=== PATIENT | male | born 1930 | race Caucasian/White ===

== ENCOUNTER 2017-01-12 11:03 | Emergency (ER) | payer OTHER ==
--- NOTE | 2017-01-12 12:34 | DIAGNOSTIC IMAGING REPORT ---
PROCEDURE: XR KNEE 4 VIEWS - LEFT INDICATION: TRAUMA/INJURY TECHNIQUE: Three views. COMPARISON: None. FINDINGS: Mild tricompartment spur formation. Mild narrowing of the medial compartment. Osteopenia. No fracture. No effusion. Extensive calcific atherosclerosis. IMPRESSION: 1. Mild atherosclerosis with mild narrowing medially 2. Osteopenia 3. Calcific atherosclerosis
--- NOTE | 2017-01-12 12:37 | DIAGNOSTIC IMAGING REPORT ---
PROCEDURE: XR HIP 2VW W W/O AP PELVIS-LT INDICATION: TRAUMA/INJURY TECHNIQUE: AP view of the pelvis and hips with lateral view of the left hip. COMPARISON: Left hip x-ray 01/02/2008. FINDINGS: LEFT HIP: Stable total left hip arthroplasty without loosening or fracture. PELVIS: Total right hip arthroplasty is also unchanged. No suspicious osseous lesion. Severe degenerative changes of the distal lumbar spine. Pelvic surgical clips. IMPRESSION: 1. Normal bilateral hip arthroplasties
--- NOTE | 2017-01-12 12:45 | ED ORDER SUMMARY ---
..... Patient: LEONOR CASTILLO OrderSheet [facility] VisitID: [id number] [place] [address] 86y, M Registration Date/Time: 01/12/2017 ORDER SHEET Weight: 55.7 kg (stated) Allergies: B-12, Vailum GENERAL ORDERS: Hip 2V Left w AP Pelvis Urgent (11:01/12/2017 PHutchinson DO) (11:28 LWhalen R.N.) Knee 4V Right Urgent (11:01/12/2017 PHutchinson DO) (Cancelled: Other11:25 PHutchinson DO) Knee 4V Left Urgent (01/12/2017 PHutchinson DO) (11:28 LWhalen R.N.) UA-Culture if indicated Urgent (11:01/12/2017 PHflchinson DO) (11:53 LWhalen R.N.) Cardiac Panel Stat (11:01/12/2017 PHflchinson DO) (11:53 LWhalen R.N.) BNP Urgent (11:01/12/2017 PHutchinson DO) (11:53 LWhalen R.N.) Amylase Urgent (11:01/12/2017 PHflchinson DO) (11:53 LWhalen R.N.) Vitals (11:01/12/2017 PHflchinson DO) (11:39 JBest R.N.) MEDICATION ORDERS: Acetaminophen PO 1,000 mg (NOW) (11:01/12/2017 PHflchinson DO) (Ack 12:06 LWhalen R.N.) (12:10 JBest R.N.) IV FLUIDS: IV NS : initial bolus 500 mL (1000 mL/hr), then 250 mL/hr for X2 (NOW) (11:01/12/2017 PHflchinson DO) (Ack 12:06 LWhalen R.N.) (12:09 JBest R.N.) ORDER SHEET NOTES: [Electronically signed by Neel Calles DO (16:25 01/12/2017)] [Electronically signed by Simi Maurice R.N. (01/12/2017)] [Electronically locked/signed by Simi Maurice R.N. (01/12/2017)]
--- NOTE | 2017-01-12 12:45 | ED ORDER SUMMARY ---
..... Patient: LEONOR CASTILLO OrderSheet [facility] VisitID: [id number] [place] [address] 86y, M Registration Date/Time: 01/12/2017 ORDER SHEET Weight: 55.7 kg (stated) Allergies: B-12, Vailum GENERAL ORDERS: Hip 2V Left w AP Pelvis Urgent (11:01/12/2017 PHutchinson DO) (11:28 LWhalen R.N.) Knee 4V Right Urgent (11:01/12/2017 PHutchinson DO) (Cancelled: Other11:25 PHutchinson DO) Knee 4V Left Urgent (01/12/2017 PHutchinson DO) (11:28 LWhalen R.N.) UA-Culture if indicated Urgent (11:01/12/2017 PHdechinson DO) (11:53 LWhalen R.N.) Cardiac Panel Stat (11:01/12/2017 PHdechinson DO) (11:53 LWhalen R.N.) BNP Urgent (11:01/12/2017 PHutchinson DO) (11:53 LWhalen R.N.) Amylase Urgent (11:01/12/2017 PHdechinson DO) (11:53 LWhalen R.N.) Vitals (11:01/12/2017 PHdechinson DO) (11:39 JBest R.N.) MEDICATION ORDERS: Acetaminophen PO 1,000 mg (NOW) (11:01/12/2017 PHdechinson DO) (Ack 12:06 LWhalen R.N.) (12:10 JBest R.N.) IV FLUIDS: IV NS : initial bolus 500 mL (1000 mL/hr), then 250 mL/hr for X2 (NOW) (11:01/12/2017 PHdechinson DO) (Ack 12:06 LWhalen R.N.) (12:09 JBest R.N.) ORDER SHEET NOTES: [Electronically signed by Neel Calles DO (16:25 01/12/2017)] [Electronically signed by Simi Maurice R.N. (01/12/2017)] [Electronically locked/signed by Simi Maurice R.N. (01/12/2017)]
--- NOTE | 2017-01-12 12:45 | ED CLINICAL REPORT ---
Clinical Report - Physicians/Mid Levels [facility] [address] [place] [address] 01/12/2017 11:05 Patient: LEONOR CASTILLO Time Seen: 11:20. Arrived- By ambulance. Historian- patient and EMS personnel. HISTORY OF PRESENT ILLNESS Chief Complaint: Injury to left hip. The injury happened about 9 days ago. Fell while standing and landed on the ground. Occurred at home. ( Left hip pain following a fall approx 9 days ago. Went to [place] and received a "pain shot" and had xrays done). Patient is experiencing moderate pain. Patient denies injury to the head or neck. No other injury. REVIEW OF SYSTEMS The patient complains of pain on weight bearing. No swelling, tingling, weakness, numbness or suspected foreign body. No skin laceration. All systems otherwise negative, except as recorded above. PAST HISTORY ( PROBLEMS: Urinary Retention. Hematuria. Fractured Metacarpal. Fall. Pleurisy. Pneumonia. PTSD. Asthma. Lumbar Strain. Chronic Back Pain. Peripheral Vascular Disease. Benign Prostatic Hypertrophy. Gastroesophageal Reflux. Depression. Environmental Allergies. Arthritis. Anemia SURGERIES: Appendectomy. Hip Surgery - right and left total hips. Intestines. Ulcer). SOCIAL HISTORY Smoker- current status unknown. Occasional alcohol use. Is a local resident. ADDITIONAL NOTES The nursing notes have been reviewed. PHYSICAL EXAM Vital Signs: 01/12/2017 11:09 BP: 133/81. HR: 86. RR: 16. O2 saturation: 100%. Temp: 98.6 F. Pain level now: 09/14. Appearance: Alert. Oriented X3. Patient in mild distress. Head: Head atraumatic. Eyes: Eyes normal inspection. No scleral icterus or pale conjunctivae. ENT: Pharynx normal. No pharyngeal erythema or tonsillar exudate. The mucous membranes are not dry. Neck: Neck supple. C-spine non-tender. CVS: Normal heart rate and rhythm. Pulses normal. Respiratory: No respiratory distress. Breath sounds normal. Chest nontender. Abdomen: No visible injury. Soft and nontender. Back: No tenderness. No vertebral point tenderness or soft tissue tenderness. Skin: Skin warm and dry. Normal skin color. Normal skin turgor. Extremities: No signs of infection involving the lower extremities. Left hip: mild tenderness located in the anterior, posterior, medial and lateral aspect of the hip. Neurovascular intact distally. (old surgical scar present). No erythema, swelling, laceration, abrasion or ecchymosis. No puncture wound, foreign body or deformity. No limitation in ROM. The left leg is not shortened, externally rotated, internally rotated, flexed or adducted. The left leg is not abducted. Left thigh: moderate tenderness located in the lateral aspect of upper thigh. No erythema, swelling, laceration, abrasion or ecchymosis. No puncture wound, foreign body or deformity. Ankle stable. Extremities otherwise negative. Gait: Limping gait. Neuro, Vascular and Tendons: No pulse deficit present. Capillary refill not prolonged. Motor intact. No functional tendon deficit or tendon injury seen. No sensory deficit or weakness. Neuro: Oriented X 3. No motor deficit. No sensory deficit. LABS, X-RAYS, AND EKG Lt Hip X-ray: No fracture. Normal alignment. (ASCVD; prosthesis in place). Views: AP and true lateral. Technique: good. The X-rays were interpreted contemporaneously by me. Lt Knee X-ray: (ASCVD). Views: AP, lateral and oblique. Technique: good. The X-rays were interpreted contemporaneously by me. Laboratory Tests: UA-Culture if indicated: (SIMBA: 01/12/2017 12:10) ( MsgRcvd 01/12/2017 12:36) Final results Test Result Flag Units (Reference) URINE COLOR YELLOW URINE APPEARANCE CLEAR URINE GLUCOSE NEGATIVE (NEGATIVE) URINE BILIRUBIN NEGATIVE (NEGATIVE) URINE KETONE NEGATIVE (NEGATIVE) URINE SPECIFIC GRAVITY 1.015 (1.010-1.030) URINE PH 5.5 (5.0-8.0) URINE PROTEIN NEGATIVE (NEGATIVE) URINE UROBILINOGEN 0.2 EU/dL (0.2-1.0) URINE NITRITE NEGATIVE (NEGATIVE) URINE BLOOD NEGATIVE (NEGATIVE) URINE LEUK ESTERASE NEGATIVE (NEGATIVE) URINE RBC NONE SEEN rbc/hpf (0-1) URINE WBC RARE wbc/hpf (0-1) URINE EPITHELIAL CELLS RARE EPI/hpf (0-5) URINE BACTERIA FEW (1+) (NONE SEEN) URINE COMMENT CULT NOT INDICATED 1-3 GRANULAR CASTS. 1+ AMORPHOUS URATES.URINE CULTURES ARE SET-UP BASED ON THE FOLLOWING CRITERIA:POSITIVE NITRITEPOSITIVE LEUKOCYTE ESTERASEGREATER THAN 10 WHITE BLOOD CELLSMODERATE (2+) OR GREATER BACTERIA CBC w Diff: (SIMBA: 01/12/2017 12:00) ( [facility] 01/12/2017 12:19) Final results Test Result Flag Units (Reference) WHITE BLOOD COUNT 6.2 K/uL (4.5-11.5) RED BLOOD COUNT 3.36 L M/uL (4.50-5.90) HEMOGLOBIN 11.0 L gm/dL (13.5-17.5) HEMATOCRIT 32.2 L % (41.0-53.0) MEAN CELL VOLUME 96 fL (80-100) MEAN CORPUSCULAR HGB 33 pg (26-34) MEAN CORPUSCULAR HGB CONC 34 g/dL (31-37) RED CELL DISTRIBUTION WIDTH 13.5 % (11.6-14.8) PLATELET COUNT 219 K/uL (150-400) NEUTROPHIL % 78.7 H % (50-75) LYMPH % 12.5 L % (25-40) MONO % 6.5 % (3-14) EOSINOPHIL % 2.0 % (0-4) BASOPHIL % 0.3 % (0-2) BNP: (SIMBA: 01/12/2017 12:00) ( [facility] 01/12/2017 12:36) Final results Test Result Flag Units (Reference) B-TYPE NATRIURETIC PEPTIDE 306 H pg/ml (5-100) CHEM 13 PANEL: (SIMBA: 01/12/2017 12:00) ( [facility] 01/12/2017 12:40) Final results Test Result Flag Units (Reference) GLUCOSE 102 mg/dL (70-110) BUN 16 mg/dL (7-18) CREATININE 0.8 mg/dL (0.6-1.3) Estimated GFR >60 mL/min Estimated GFR- >60 mL/min Note: Persistent reduction over 3 months in eGFR<60 mL/min/1.73 m2 defines CKD. Patients with eGFR values>=60 mL/min/1.73 m2 may also have CKD if evidence ofpersistent proteinuria. Additional information may be foundat www.kidney.org. SODIUM 136 mmol/L (136-145) POTASSIUM 4.3 mmol/L (3.5-5.1) CHLORIDE 103 mmol/L (98-107) CARBON DIOXIDE 24 mmol/L (21-32) CALCIUM 8.3 L mg/dL (8.5-10.1) TOTAL PROTEIN 6.6 g/dL (6.4-8.2) ALBUMIN 3.2 L g/dL (3.3-5.0) BILIRUBIN, TOTAL 0.4 mg/dL (0.0-1.0) ALKALINE PHOSPHATASE 91 U/L (46-116) AST (SGOT) 20 U/L (15-37) ALT (SGPT) 16 U/L (12-78) MAGNESIUM 2.1 mg/dL (1.8-2.4) AMYLASE 61 U/L (25-115) CPK 91 U/L (24-260) TROPONIN I <0.05 ng/mL (0.00-1.5) TROPONIN REFERENCE RANGE:<0.1 NEGATIVE0.1-1.5 INDETERMINANT>1.5 POSITIVE . Pulse Oximetry: 01/12/2017 11:09 O2 saturation: 100%. (FIO2 - room air). Interpretation: normal. PROGRESS AND PROCEDURES Course of Care: Acetaminophen 1000 mg PO given. Normal Saline 500 mL IVPB given. 14:51 01/12/17. Seen by d/c samantha- may have 2 hours in the am and 2 hours in the pm of home health. [facility] Pt is ambulatory in the ED and A+O x 4. No clear admission criteria now. Patient/family counseled. Old ED records reviewed. Disposition: Discharged. Condition: stable and improved. CLINICAL IMPRESSION Acute traumatic pain in the left lower extremity (hip and thigh). Chronic difficulty walking with falling episodes. 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 Fall on same level by slipping. INSTRUCTIONS Elevate affected areas above chest level. Warnings: GENERAL WARNINGS: Return or contact your physician immediately if your condition worsens or changes unexpectedly, if not improving as expected, or if other problems arise. Your Current Medications: CONTINUE TAKING THE FOLLOWING MEDICATIONS: Acetaminophen Oral. Arthritis acet* : 1/650 mg daily. Calc,mag,zinc* : 1-3 per day. Calcium* : 2x a day. Cholecalciferol Oral : Tablet 1000 unit, daily. Cyanobalmic* : 1000 mg daily. Easy c* : daily. Finasteride Oral : 5 mg daily. Flex-a-min Joint Flex Oral : daily. Flunisolide Nasal. Ginkgo Biloba Oral : 120 mg daily. Glucosamine Oral : 1500 mg daily. LiquiTears Ophthalmic : prn. Loratadine Oral : 10 mg daily. Mirtazapine Oral : Tablet 7.5 mg, daily. [place] 3 Oral : bid. Omeprazole Oral : 10 mg daily. Oxycodone-Acetaminophen Oral : 5/325 mg 2x a day. PARoxetine HCl Oral : Tablet 10 mg, daily. Pentoxifylline ER Oral : 400 mg daily. Puridoxine* : 50 mg daily. Tamsulosin HCl Oral : 0.4 mg 2x a day. Vit C* : daily. Vit E* : daily. Vitamins/Minerals Oral : 2x a day. Follow-up: [facility] Follow-up with: Dusty Rojas MD, [facility], , [facility], [address] [place] [address] Follow up in about two days. (Electronically signed by Neel Calles DO 01/12/2017 16:25)
--- NOTE | 2017-01-12 12:45 | ED NURSING NOTES ---
Clinical Report - Nurses [facility] [address] [place] [address] 01/12/2017 11:05 Patient: LEONOR CASTILLO TRIAGE Triage time 11:11. Acuity: LEVEL 3. Chief Complaint: LEFT LOWER EXTREMITY PAIN. Alert. SEPSIS SCREEN: Sepsis Screen. Negative (no infection suspected/documented). --11:24 Simi Maurice R.N. 11:09 01/12/17. BP: 133/81. HR: 86. RR: 16. O2 saturation: 100%. Temp: 98.6 F. Pain level now: 09/14. --11:24 Simi Maurice R.N. Weight: 55.7 kg stated. Height/Length: 63 inches Per Patient. BMI: 21.8. --11:10 Simi Maurice R.N. Medications Acetaminophen Oral. Arthritis acet 1/650 mg, daily. Calc,mag,zinc (1-3 per day). Calcium, 2x a day. Cholecalciferol Oral (Tablet 1000 unit), daily. Cyanobalmic 1000 mg, daily. Easy c, daily. Finasteride Oral 5 mg, daily. Flex-a-min Joint Flex Oral, daily. Flunisolide Nasal. Ginkgo Biloba Oral 120 mg, daily. Glucosamine Oral 1500 mg, daily. LiquiTears Ophthalmic, as needed. Loratadine Oral 10 mg, daily. Mirtazapine Oral (Tablet 7.5 mg), daily. [place] 3 Oral, bid. Omeprazole Oral 10 mg, daily. Oxycodone-Acetaminophen Oral 5/325 mg, 2x a day. PARoxetine HCl Oral (Tablet 10 mg), daily. Pentoxifylline ER Oral 400 mg, daily. Puridoxine 50 mg, daily. Tamsulosin HCl Oral 0.4 mg, 2x a day. Vit C, daily. Vit E, daily. Vitamins/Minerals Oral, 2x a day. --11:17 Simi Maurice R.N. Allergies B-12. Vailum. --11:17 Simi Maurice R.N. History Arrived by EMS. Historian: patient. Primary physician (Mary ([facility])). No injury occurred. This occurred (about 9 days ago). ( Left hip pain following a fall approx 9 days ago. Went to [place] and received a "pain shot" and had xrays done.). Treatment RADIOLOGIST CHIEF OF BREAST IMAGING: Seen within the last 30 days at another facility; seen for similar symptoms; xrays done; treatment- pain medication. See EMS report. SURGERY HX: Right and left hip surgery (Total Hip Replacement). SOCIAL HX: Former smoker, end date 1975. Occasional alcohol use. No drug use. No infectious disease exposure. SELF HARM ASSESSMENT: A self harm assessment was performed. The patient answered "no" to the question "Do you have thoughts of harming or killing yourself?". ABUSE ASSESSMENT: Abuse assessment: ("yes") The patient was asked "Do you feel safe in your home?". FALL RISK ASSESSMENT: Fall risk assessment completed. Risk factors identified include patient age greater than 65 years and history of fall. Fall interventions initiated. Side rails up. Brakes on Bed in low position. Patient visible from nurses' station. Call light in reach of patient. Instructed not to get up without assistance. --11:24 Simi Maurice R.N. PROBLEMS: Urinary Retention. Hematuria. Fractured Metacarpal. Fall. Pleurisy. Pneumonia. PTSD. Asthma. Lumbar Strain. Chronic Back Pain. Peripheral Vascular Disease. Benign Prostatic Hypertrophy. Gastroesophageal Reflux. Depression. Environmental Allergies. Arthritis. --11:17 Simi Maurice R.N. ADDITIONAL SURGERIES: Appendectomy. Hip Surgery. Intestines. Ulcer. --11:17 Simi Maurice R.N. Interventions ID band on patient. To room. --11:24 Simi Maurice R.N. PHYSICAL ASSESSMENT EXTREMITIES: Limited ROM present in the left hip. Extremity pulses are within normal limits. No lower extremity edema. Left hip: tenderness. SKIN: Skin intact. Skin is warm and dry. --11:31 Simi Maurice R.N. NURSING PROGRESS NOTES Patient gowned. Reassurance given. Patient identifiers checked. Call light placed in reach. Side rails up. Bed placed in lowest position. Brakes of bed on. Patient ready for evaluation- ED physician notified. --11:31 Simi Maurice R.N. Patient transported to radiology by stretcher with tech. --11:36 Simi Maurice R.N. Patient returned from radiology by stretcher with tech. --11:52 Simi Maurice R.N. 11:58 01/12/2017 Site #1 started via IV in the left forearm with an 20g angiocath, with aseptic technique and good blood return; one attempt. Blood drawn: rainbow set. Labeled in the presence of the patient and sent to the lab. Saline lock flushed with 10 mL saline. --12:08 Simi Maurice R.N. 12:04 01/12/2017 Started bag #1 1000 mL IV Fluids IV NS (Saline); bolus of 500 mL over 30 minute(s) then at 250 mL/hr over 2 hour(s) via site #1 via IV pump. Allergies verified and confirmed 5 rights. IV patency established. IV site checked: no pain, redness, or swelling. IV flushed thoroughly pre- and post-medication administration. --12:09 Simi Maurice R.N. 12:05 01/12/2017 Acetaminophen (APAP) PO Tablets 1000 mg given. Allergies verified and confirmed 5 rights. --12:10 Simi Maurice R.N. late entry - 13:45. ( Pts granddaughter in the room and would like to speak with someone regarding placement options. naval surface fire support planner will come to the ED to talk with her.). --16:11 Simi Maurice R.N. late entry - 14:45. ( Jacobo (Discharge Planning) in to talk to the granddaughter about options for the pt for assistance at home.). --16:12 Simi Maurice R.N. 15:30 late entry -. ( [facility] until she is able to get him into [facility] in a few weeks.). --16:13 Simi Maurice R.N. 16:10 01/12/17. BP: 128/76. HR: 84. RR: 16. O2 saturation: 98%. Temp: 98.6 F. Pain level now: 08/17. --16:15 Simi Maurice R.N. DISPOSITION / DISCHARGE Departure time: 1610. Discharge instructions provided and reviewed with the patient and family. Patient and family verbalized understanding. Written instructions provided in Japanese. The patient was discharged by the physician. He was discharged home and accompanied by family. He left the Emergency Department in a wheelchair and via private vehicle. Family member driving. --16:15 Simi Maurice R.N. Condition at departure: improved. --16:15 Simi Maurice R.N. 15:00 01/12/2017 IV Fluids IV NS Discontinued: bag #1 infused. Total amount infused: 1000 mL. --16:17 Simi Maurice R.N. 15:52 01/12/2017 Site #1 removed upon discharge. Catheter intact. Bandaid applied. --16:17 Simi Maurice R.N. 16:10 01/12/17. BP: 128/76. HR: 84. RR: 16. O2 saturation: 98%. Temp: 98.6 F. Pain level now: 08/17. --16:18 Simi Maurice R.N. Locked/Released at 01/12/2017 19:07 by Simi Maurice R.N.
--- NOTE | 2017-01-12 12:45 | ED CLINICAL REPORT ---
Clinical Report - Physicians/Mid Levels [facility] [address] [place] [address] 01/12/2017 11:05 Patient: LEONOR CASTILLO Time Seen: 11:20. Arrived- By ambulance. Historian- patient and EMS personnel. HISTORY OF PRESENT ILLNESS Chief Complaint: Injury to left hip. The injury happened about 9 days ago. Fell while standing and landed on the ground. Occurred at home. ( Left hip pain following a fall approx 9 days ago. Went to [place] and received a "pain shot" and had xrays done). Patient is experiencing moderate pain. Patient denies injury to the head or neck. No other injury. REVIEW OF SYSTEMS The patient complains of pain on weight bearing. No swelling, tingling, weakness, numbness or suspected foreign body. No skin laceration. All systems otherwise negative, except as recorded above. PAST HISTORY ( PROBLEMS: Urinary Retention. Hematuria. Fractured Metacarpal. Fall. Pleurisy. Pneumonia. PTSD. Asthma. Lumbar Strain. Chronic Back Pain. Peripheral Vascular Disease. Benign Prostatic Hypertrophy. Gastroesophageal Reflux. Depression. Environmental Allergies. Arthritis. Anemia SURGERIES: Appendectomy. Hip Surgery - right and left total hips. Intestines. Ulcer). SOCIAL HISTORY Smoker- current status unknown. Occasional alcohol use. Is a local resident. ADDITIONAL NOTES The nursing notes have been reviewed. PHYSICAL EXAM Vital Signs: 01/12/2017 11:09 BP: 133/81. HR: 86. RR: 16. O2 saturation: 100%. Temp: 98.6 F. Pain level now: 09/14. Appearance: Alert. Oriented X3. Patient in mild distress. Head: Head atraumatic. Eyes: Eyes normal inspection. No scleral icterus or pale conjunctivae. ENT: Pharynx normal. No pharyngeal erythema or tonsillar exudate. The mucous membranes are not dry. Neck: Neck supple. C-spine non-tender. CVS: Normal heart rate and rhythm. Pulses normal. Respiratory: No respiratory distress. Breath sounds normal. Chest nontender. Abdomen: No visible injury. Soft and nontender. Back: No tenderness. No vertebral point tenderness or soft tissue tenderness. Skin: Skin warm and dry. Normal skin color. Normal skin turgor. Extremities: No signs of infection involving the lower extremities. Left hip: mild tenderness located in the anterior, posterior, medial and lateral aspect of the hip. Neurovascular intact distally. (old surgical scar present). No erythema, swelling, laceration, abrasion or ecchymosis. No puncture wound, foreign body or deformity. No limitation in ROM. The left leg is not shortened, externally rotated, internally rotated, flexed or adducted. The left leg is not abducted. Left thigh: moderate tenderness located in the lateral aspect of upper thigh. No erythema, swelling, laceration, abrasion or ecchymosis. No puncture wound, foreign body or deformity. Ankle stable. Extremities otherwise negative. Gait: Limping gait. Neuro, Vascular and Tendons: No pulse deficit present. Capillary refill not prolonged. Motor intact. No functional tendon deficit or tendon injury seen. No sensory deficit or weakness. Neuro: Oriented X 3. No motor deficit. No sensory deficit. LABS, X-RAYS, AND EKG Lt Hip X-ray: No fracture. Normal alignment. (ASCVD; prosthesis in place). Views: AP and true lateral. Technique: good. The X-rays were interpreted contemporaneously by me. Lt Knee X-ray: (ASCVD). Views: AP, lateral and oblique. Technique: good. The X-rays were interpreted contemporaneously by me. Laboratory Tests: UA-Culture if indicated: (SIMBA: 01/12/2017 12:10) ( MsgRcvd 01/12/2017 12:36) Final results Test Result Flag Units (Reference) URINE COLOR YELLOW URINE APPEARANCE CLEAR URINE GLUCOSE NEGATIVE (NEGATIVE) URINE BILIRUBIN NEGATIVE (NEGATIVE) URINE KETONE NEGATIVE (NEGATIVE) URINE SPECIFIC GRAVITY 1.015 (1.010-1.030) URINE PH 5.5 (5.0-8.0) URINE PROTEIN NEGATIVE (NEGATIVE) URINE UROBILINOGEN 0.2 EU/dL (0.2-1.0) URINE NITRITE NEGATIVE (NEGATIVE) URINE BLOOD NEGATIVE (NEGATIVE) URINE LEUK ESTERASE NEGATIVE (NEGATIVE) URINE RBC NONE SEEN rbc/hpf (0-1) URINE WBC RARE wbc/hpf (0-1) URINE EPITHELIAL CELLS RARE EPI/hpf (0-5) URINE BACTERIA FEW (1+) (NONE SEEN) URINE COMMENT CULT NOT INDICATED 1-3 GRANULAR CASTS. 1+ AMORPHOUS URATES.URINE CULTURES ARE SET-UP BASED ON THE FOLLOWING CRITERIA:POSITIVE NITRITEPOSITIVE LEUKOCYTE ESTERASEGREATER THAN 10 WHITE BLOOD CELLSMODERATE (2+) OR GREATER BACTERIA CBC w Diff: (SIMBA: 01/12/2017 12:00) ( [facility] 01/12/2017 12:19) Final results Test Result Flag Units (Reference) WHITE BLOOD COUNT 6.2 K/uL (4.5-11.5) RED BLOOD COUNT 3.36 L M/uL (4.50-5.90) HEMOGLOBIN 11.0 L gm/dL (13.5-17.5) HEMATOCRIT 32.2 L % (41.0-53.0) MEAN CELL VOLUME 96 fL (80-100) MEAN CORPUSCULAR HGB 33 pg (26-34) MEAN CORPUSCULAR HGB CONC 34 g/dL (31-37) RED CELL DISTRIBUTION WIDTH 13.5 % (11.6-14.8) PLATELET COUNT 219 K/uL (150-400) NEUTROPHIL % 78.7 H % (50-75) LYMPH % 12.5 L % (25-40) MONO % 6.5 % (3-14) EOSINOPHIL % 2.0 % (0-4) BASOPHIL % 0.3 % (0-2) BNP: (SIMBA: 01/12/2017 12:00) ( [facility] 01/12/2017 12:36) Final results Test Result Flag Units (Reference) B-TYPE NATRIURETIC PEPTIDE 306 H pg/ml (5-100) CHEM 13 PANEL: (SIMBA: 01/12/2017 12:00) ( [facility] 01/12/2017 12:40) Final results Test Result Flag Units (Reference) GLUCOSE 102 mg/dL (70-110) BUN 16 mg/dL (7-18) CREATININE 0.8 mg/dL (0.6-1.3) Estimated GFR >60 mL/min Estimated GFR- >60 mL/min Note: Persistent reduction over 3 months in eGFR<60 mL/min/1.73 m2 defines CKD. Patients with eGFR values>=60 mL/min/1.73 m2 may also have CKD if evidence ofpersistent proteinuria. Additional information may be foundat www.[email or web address].org. SODIUM 136 mmol/L (136-145) POTASSIUM 4.3 mmol/L (3.5-5.1) CHLORIDE 103 mmol/L (98-107) CARBON DIOXIDE 24 mmol/L (21-32) CALCIUM 8.3 L mg/dL (8.5-10.1) TOTAL PROTEIN 6.6 g/dL (6.4-8.2) ALBUMIN 3.2 L g/dL (3.3-5.0) BILIRUBIN, TOTAL 0.4 mg/dL (0.0-1.0) ALKALINE PHOSPHATASE 91 U/L (46-116) AST (SGOT) 20 U/L (15-37) ALT (SGPT) 16 U/L (12-78) MAGNESIUM 2.1 mg/dL (1.8-2.4) AMYLASE 61 U/L (25-115) CPK 91 U/L (24-260) TROPONIN I <0.05 ng/mL (0.00-1.5) TROPONIN REFERENCE RANGE:<0.1 NEGATIVE0.1-1.5 INDETERMINANT>1.5 POSITIVE . Pulse Oximetry: 01/12/2017 11:09 O2 saturation: 100%. (FIO2 - room air). Interpretation: normal. PROGRESS AND PROCEDURES Course of Care: Acetaminophen 1000 mg PO given. Normal Saline 500 mL IVPB given. 14:51 01/12/17. Seen by d/c samantha- may have 2 hours in the am and 2 hours in the pm of home health. [facility] Pt is ambulatory in the ED and A+O x 4. No clear admission criteria now. Patient/family counseled. Old ED records reviewed. Disposition: Discharged. Condition: stable and improved. CLINICAL IMPRESSION Acute traumatic pain in the left lower extremity (hip and thigh). Chronic difficulty walking with falling episodes. 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 Fall on same level by slipping. INSTRUCTIONS Elevate affected areas above chest level. Warnings: GENERAL WARNINGS: Return or contact your physician immediately if your condition worsens or changes unexpectedly, if not improving as expected, or if other problems arise. Your Current Medications: CONTINUE TAKING THE FOLLOWING MEDICATIONS: Acetaminophen Oral. Arthritis acet* : 1/650 mg daily. Calc,mag,zinc* : 1-3 per day. Calcium* : 2x a day. Cholecalciferol Oral : Tablet 1000 unit, daily. Cyanobalmic* : 1000 mg daily. Easy c* : daily. Finasteride Oral : 5 mg daily. Flex-a-min Joint Flex Oral : daily. Flunisolide Nasal. Ginkgo Biloba Oral : 120 mg daily. Glucosamine Oral : 1500 mg daily. LiquiTears Ophthalmic : prn. Loratadine Oral : 10 mg daily. Mirtazapine Oral : Tablet 7.5 mg, daily. Boykins 3 Oral : bid. Omeprazole Oral : 10 mg daily. Oxycodone-Acetaminophen Oral : 5/325 mg 2x a day. PARoxetine HCl Oral : Tablet 10 mg, daily. Pentoxifylline ER Oral : 400 mg daily. Puridoxine* : 50 mg daily. Tamsulosin HCl Oral : 0.4 mg 2x a day. Vit C* : daily. Vit E* : daily. Vitamins/Minerals Oral : 2x a day. Follow-up: [facility] Follow-up with: Dusty Rojas MD, [facility], , [facility], [address] [place] [address] Follow up in about two days. (Electronically signed by Neel Calles DO 01/12/2017 16:25)
--- NOTE | 2017-01-12 12:45 | ED NURSING NOTES ---
Clinical Report - Nurses [facility] [address] [place] [address] 01/12/2017 11:05 Patient: LEONOR CASTILLO TRIAGE Triage time 11:11. Acuity: LEVEL 3. Chief Complaint: LEFT LOWER EXTREMITY PAIN. Alert. SEPSIS SCREEN: Sepsis Screen. Negative (no infection suspected/documented). --11:24 Simi Maurice R.N. 11:09 01/12/17. BP: 133/81. HR: 86. RR: 16. O2 saturation: 100%. Temp: 98.6 F. Pain level now: 09/14. --11:24 Simi Maurice R.N. Weight: 55.7 kg stated. Height/Length: 63 inches Per Patient. BMI: 21.8. --11:10 Simi Maurice R.N. Medications Acetaminophen Oral. Arthritis acet 1/650 mg, daily. Calc,mag,zinc (1-3 per day). Calcium, 2x a day. Cholecalciferol Oral (Tablet 1000 unit), daily. Cyanobalmic 1000 mg, daily. Easy c, daily. Finasteride Oral 5 mg, daily. Flex-a-min Joint Flex Oral, daily. Flunisolide Nasal. Ginkgo Biloba Oral 120 mg, daily. Glucosamine Oral 1500 mg, daily. LiquiTears Ophthalmic, as needed. Loratadine Oral 10 mg, daily. Mirtazapine Oral (Tablet 7.5 mg), daily. [place] 3 Oral, bid. Omeprazole Oral 10 mg, daily. Oxycodone-Acetaminophen Oral 5/325 mg, 2x a day. PARoxetine HCl Oral (Tablet 10 mg), daily. Pentoxifylline ER Oral 400 mg, daily. Puridoxine 50 mg, daily. Tamsulosin HCl Oral 0.4 mg, 2x a day. Vit C, daily. Vit E, daily. Vitamins/Minerals Oral, 2x a day. --11:17 Simi Maurice R.N. Allergies B-12. Vailum. --11:17 Simi Maurice R.N. History Arrived by EMS. Historian: patient. Primary physician (Mary ([facility])). No injury occurred. This occurred (about 9 days ago). ( Left hip pain following a fall approx 9 days ago. Went to [place] and received a "pain shot" and had xrays done.). 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 See EMS report. SURGERY HX: Right and left hip surgery (Total Hip Replacement). SOCIAL HX: Former smoker, end date 1975. Occasional alcohol use. No drug use. No infectious disease exposure. SELF HARM ASSESSMENT: A self harm assessment was performed. The patient answered "no" to the question "Do you have thoughts of harming or killing yourself?". ABUSE ASSESSMENT: Abuse assessment: ("yes") The patient was asked "Do you feel safe in your home?". FALL RISK ASSESSMENT: Fall risk assessment completed. Risk factors identified include patient age greater than 65 years and history of fall. Fall interventions initiated. Side rails up. Brakes on Bed in low position. Patient visible from nurses' station. Call light in reach of patient. Instructed not to get up without assistance. --11:24 Simi Maurice R.N. PROBLEMS: Urinary Retention. Hematuria. Fractured Metacarpal. Fall. Pleurisy. Pneumonia. PTSD. Asthma. Lumbar Strain. Chronic Back Pain. Peripheral Vascular Disease. Benign Prostatic Hypertrophy. Gastroesophageal Reflux. Depression. Environmental Allergies. Arthritis. --11:17 Simi Maurice R.N. ADDITIONAL SURGERIES: Appendectomy. Hip Surgery. Intestines. Ulcer. --11:17 Simi Maurice R.N. Interventions ID band on patient. To room. --11:24 Simi Maurice R.N. PHYSICAL ASSESSMENT EXTREMITIES: Limited ROM present in the left hip. Extremity pulses are within normal limits. No lower extremity edema. Left hip: tenderness. SKIN: Skin intact. Skin is warm and dry. --11:31 Simi Maurice R.N. NURSING PROGRESS NOTES Patient gowned. Reassurance given. Patient identifiers checked. Call light placed in reach. Side rails up. Bed placed in lowest position. Brakes of bed on. Patient ready for evaluation- ED physician notified. --11:31 Simi Maurice R.N. Patient transported to radiology by stretcher with tech. --11:36 Simi Maurice R.N. Patient returned from radiology by stretcher with tech. --11:52 Simi Maurice R.N. 11:58 01/12/2017 Site #1 started via IV in the left forearm with an 20g angiocath, with aseptic technique and good blood return; one attempt. Blood drawn: rainbow set. Labeled in the presence of the patient and sent to the lab. Saline lock flushed with 10 mL saline. --12:08 Simi Maurice R.N. 12:04 01/12/2017 Started bag #1 1000 mL IV Fluids IV NS (Saline); bolus of 500 mL over 30 minute(s) then at 250 mL/hr over 2 hour(s) via site #1 via IV pump. Allergies verified and confirmed 5 rights. IV patency established. IV site checked: no pain, redness, or swelling. IV flushed thoroughly pre- and post-medication administration. --12:09 Simi Maurice R.N. 12:05 01/12/2017 Acetaminophen (APAP) PO Tablets 1000 mg given. Allergies verified and confirmed 5 rights. --12:10 Simi Maurice R.N. late entry - 13:45. ( Pts granddaughter in the room and would like to speak with someone regarding placement options. neighborhood planner will come to the ED to talk with her.). --16:11 Simi Maurice R.N. late entry - 14:45. ( Jacobo (Discharge Planning) in to talk to the granddaughter about options for the pt for assistance at home.). --16:12 Simi Maurice R.N. 15:30 late entry -. ( [facility] until she is able to get him into [facility] in a few weeks.). --16:13 Simi Maurice R.N. 16:10 01/12/17. BP: 128/76. HR: 84. RR: 16. O2 saturation: 98%. Temp: 98.6 F. Pain level now: 08/17. --16:15 Simi Maurice R.N. DISPOSITION / DISCHARGE Departure time: 1610. Discharge instructions provided and reviewed with the patient and family. Patient and family verbalized understanding. Written instructions provided in [facility]. The patient was discharged by the physician. He was discharged home and accompanied by family. He left the Emergency Department in a wheelchair and via private vehicle. Family member driving. --16:15 Simi Maurice R.N. Condition at departure: improved. --16:15 Simi Maurice R.N. 15:00 01/12/2017 IV Fluids IV NS Discontinued: bag #1 infused. Total amount infused: 1000 mL. --16:17 Simi Maurice R.N. 15:52 01/12/2017 Site #1 removed upon discharge. Catheter intact. Bandaid applied. --16:17 Simi Maurice R.N. 16:10 01/12/17. BP: 128/76. HR: 84. RR: 16. O2 saturation: 98%. Temp: 98.6 F. Pain level now: 08/17. --16:18 Simi Maurice R.N. Locked/Released at 01/12/2017 19:07 by Simi Maurice R.N.
--- NOTE | 2017-01-12 19:08 | ED MED RECONCILIATION SUMMARY ---
Patient: LEONOR CASTILLO Medication Reconciliation Report [facility] VisitID: [id number] [place] [address] 86y, M Registration Date/Time: 01/12/2017 Weight: 55.7 kg Height/Length: 63 in. BMI: 21.8 ALLERGIES: B-12, Vailum The patient's Home Medications are listed below: CONTINUE TAKING THE FOLLOWING MEDICATIONS: Acetaminophen Oral Arthritis acet 1/650 mg, daily Calc,mag,zinc, 1-3 per day Calcium, 2x a day Cholecalciferol Oral (1000 unit), daily Cyanobalmic 1000 mg, daily Easy c, daily Finasteride Oral 5 mg, daily Flex-a-min Joint Flex Oral, daily Flunisolide Nasal Ginkgo Biloba Oral 120 mg, daily Glucosamine Oral 1500 mg, daily LiquiTears Ophthalmic Loratadine Oral 10 mg, daily Mirtazapine Oral (7.5 mg), daily [place] 3 Oral, bid Omeprazole Oral 10 mg, daily Oxycodone-Acetaminophen Oral 5/325 mg, 2x a day PARoxetine HCl Oral (10 mg), daily Pentoxifylline ER Oral 400 mg, daily Puridoxine 50 mg, daily Tamsulosin HCl Oral 0.4 mg, 2x a day Vit C, daily Vit E, daily Vitamins/Minerals Oral, 2x a day The source(s) of the original Home Medication information: Not obtained. The following Medications were given to the patient in the Emergency Department: IV NS IV Fluids bolus 500 mL over 30 minute(s), then 250 mL/hr, administered: 01/12/2017 12:04:00 PM Acetaminophen [PO] PO 1000 mg, administered: 01/12/2017 12:05:00 PM The following Medications were prescribed to the patient: None.
--- NOTE | 2017-01-12 19:08 | ED MED RECONCILIATION SUMMARY ---
Patient: LEONOR CASTILLO Medication Reconciliation Report [facility] VisitID: [id number] [place] [address] 86y, M Registration Date/Time: 01/12/2017 Weight: 55.7 kg Height/Length: 63 in. BMI: 21.8 ALLERGIES: B-12, Vailum The patient's Home Medications are listed below: CONTINUE TAKING THE FOLLOWING MEDICATIONS: Acetaminophen Oral Arthritis acet 1/650 mg, daily Calc,mag,zinc, 1-3 per day Calcium, 2x a day Cholecalciferol Oral (1000 unit), daily Cyanobalmic 1000 mg, daily Easy c, daily Finasteride Oral 5 mg, daily Flex-a-min Joint Flex Oral, daily Flunisolide Nasal Ginkgo Biloba Oral 120 mg, daily Glucosamine Oral 1500 mg, daily LiquiTears Ophthalmic Loratadine Oral 10 mg, daily Mirtazapine Oral (7.5 mg), daily [place] 3 Oral, bid Omeprazole Oral 10 mg, daily Oxycodone-Acetaminophen Oral 5/325 mg, 2x a day PARoxetine HCl Oral (10 mg), daily Pentoxifylline ER Oral 400 mg, daily Puridoxine 50 mg, daily Tamsulosin HCl Oral 0.4 mg, 2x a day Vit C, daily Vit E, daily Vitamins/Minerals Oral, 2x a day The source(s) of the original Home Medication information: Not obtained. The following Medications were given to the patient in the Emergency Department: IV NS IV Fluids bolus 500 mL over 30 minute(s), then 250 mL/hr, administered: 01/12/2017 12:04:00 PM Acetaminophen [PO] PO 1000 mg, administered: 01/12/2017 12:05:00 PM The following Medications were prescribed to the patient: None.
--- NOTE | 2017-01-12 19:08 | ED MAR SUMMARY ---
..... Medication Administration Record [facility] [address] [place] [address] Patient: LEONOR CASTILLO Visit ID: [id number] 86y, M Weight: 55.7 kg Height/Length: 63 in BMI: 21.8 ALLERGIES: B-12, Vailum Start 12:04 01/12/2017 Simi Maurice R.N., Stop 15:00 01/12/2017 Simi Maurice R.N. Medication Administered: IV NS (SALINE), Dose: IV Fluids over 2 hour(s), Rate: 250 mL/hr, Bolus: 500 mL over 30 minute(s), Dispensed: 1000 mL bag, Site: #1 left forearm. Medication Ordered: IV NS : initial bolus 500 mL (1000 mL/hr), then 250 mL/hr for X2 (NOW). Given 12:05 01/12/2017 Simi Maurice R.N. Medication Administered: ACETAMINOPHEN [PO] (APAP), Dose: 1000 mg Tablets PO. Medication Ordered: Acetaminophen PO 1,000 mg (NOW).
--- NOTE | 2017-01-12 19:08 | ED MAR SUMMARY ---
..... Medication Administration Record [facility] [address] [place] [address] Patient: LEONOR CASTILLO Visit ID: [id number] 86y, M Weight: 55.7 kg Height/Length: 63 in BMI: 21.8 ALLERGIES: B-12, Vailum Start 12:04 01/12/2017 Simi Maurice R.N., Stop 15:00 01/12/2017 Simi Maurice R.N. Medication Administered: IV NS (SALINE), Dose: IV Fluids over 2 hour(s), Rate: 250 mL/hr, Bolus: 500 mL over 30 minute(s), Dispensed: 1000 mL bag, Site: #1 left forearm. Medication Ordered: IV NS : initial bolus 500 mL (1000 mL/hr), then 250 mL/hr for X2 (NOW). Given 12:05 01/12/2017 Simi Maurice R.N. Medication Administered: ACETAMINOPHEN [PO] (APAP), Dose: 1000 mg Tablets PO. Medication Ordered: Acetaminophen PO 1,000 mg (NOW).
--- NOTE | 2017-01-12 19:08 | ED DISCHARGE INSTRUCTIONS ---
Patient: LEONOR CASTILLO General Instructions [facility] VisitID: [id number] [place] [id number], M Registration Date/Time: 01/12/2017 Acute traumatic pain in the left lower extremity (hip and thigh). Chronic difficulty walking with falling episodes. 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 Fall on same level by slipping. INSTRUCTIONS Elevate affected areas above chest level. Warnings: GENERAL WARNINGS: Return or contact your physician immediately if your condition worsens or changes unexpectedly, if not improving as expected, or if other problems arise. Your Current Medications: CONTINUE TAKING THE FOLLOWING MEDICATIONS: Acetaminophen Oral. Arthritis acet* : 1/650 mg daily. Calc,mag,zinc* : 1-3 per day. Calcium* : 2x a day. Cholecalciferol Oral : Tablet 1000 unit, daily. Cyanobalmic* : 1000 mg daily. Easy c* : daily. Finasteride Oral : 5 mg daily. Flex-a-min Joint Flex Oral : daily. Flunisolide Nasal. Ginkgo Biloba Oral : 120 mg daily. Glucosamine Oral : 1500 mg daily. LiquiTears Ophthalmic : prn. Loratadine Oral : 10 mg daily. Mirtazapine Oral : Tablet 7.5 mg, daily. Bigler 3 Oral : bid. Omeprazole Oral : 10 mg daily. Oxycodone-Acetaminophen Oral : 5/325 mg 2x a day. PARoxetine HCl Oral : Tablet 10 mg, daily. Pentoxifylline ER Oral : 400 mg daily. Puridoxine* : 50 mg daily. Tamsulosin HCl Oral : 0.4 mg 2x a day. Vit C* : daily. Vit E* : daily. Vitamins/Minerals Oral : 2x a day. Follow-up: [facility] Follow-up with: Dusty Rojas MD, [facility], , [facility], [address] [place] [address] Follow up in about two days. ADDITIONAL INFORMATION Pain, Uncertain Cause [Acute] Pain is the bodys way of calling attention to a problem. Pain can be caused by many conditions - some minor, some serious. In your case, we were not able to find the exact cause for your pain. However, at this time there is no sign of any serious or life-threatening illness causing your pain. Sometimes more tests will be needed to determine the cause. Other times, just allowing more time to pass will either make it clear what the problem is, or the pain will go away by itself. Home Care: You may use acetaminophen (Tylenol) or ibuprofen (Motrin, Advil) to control pain, unless another medicine was prescribed. [NOTE: If you have chronic liver or kidney disease or ever had a stomach ulcer or GI bleeding, talk with your doctor before using these medicines.] Follow Up with your doctor or as advised by our staff. Get Prompt Medical Attention if any of the following occur: Changes in the pattern of your pain Appearance of new symptoms Fever of 100.4F (38C) or higher, or as directed by your healthcare provider Arthralgia Arthralgia is the term for pain in or around the joint. It is not a disease but a symptom. This may involve one or more joints. Sometimes arthralgias move from joint to joint. There are many causes for joint pain. These include: Injury Osteoarthritis (from wearing out of the joint surface) Rheumatoid arthritis (an autoimmune disease) Gout (inflammation of the joint due to crystals in the joint fluid) Infection inside the joint Bursitis (inflammation of the fluid-filled sacs around the joint) Lupus and other collagen-vascular disease Home Care: Rest the involved joint(s) until your symptoms improve. You may use acetaminophen (Tylenol) or ibuprofen (Motrin, Advil) to control pain, unless another pain medicine was prescribed. [NOTE: If you have chronic liver or kidney disease or ever had a stomach ulcer or GI bleeding, talk with your doctor before using these medicines.] Follow Up with your doctor or as advised by our staff. [NOTE: If you had an X-ray it will be reviewed by a specialist. You will be notified of any new findings that may affect your care.] Return Promptly or contact your doctor if any of the following occurs: Pain increases Pain moves to other joints New rash appears Fever of 100.4F (38C) or higher, or as directed by your healthcare provider Mechanical Fall You have had a fall today. It appears that the cause is mechanical. That means that you slipped, tripped or lost your balance. If your fall had been due to fainting or a seizure, further tests would be required. Home Care: Rest today and resume your normal activities when you are feeling back to normal. If you were injured during the fall, follow the advice from your doctor regarding care of your injury. You may use acetaminophen (Tylenol) or ibuprofen (Motrin, Advil) to control pain, unless another pain medicine was prescribed. [NOTE: If you have chronic liver or kidney disease or ever had a stomach ulcer or GI bleeding, talk with your doctor before using these medicines.] Fall Prevention: Was there anything that caused your fall that can be fixed, removed, or replaced? Make your home safe by keeping walkways clear of objects you may trip over. Use non-slip pads under rugs. Do not walk in poorly lit areas. Do not stand on chairs or wobbly ladders. Use caution when reaching overhead or looking upward. This position can cause a loss of balance. Be sure your shoes fit properly, have non-slip bottoms and are in good condition. Be cautious when going up and down curbs, and walking on uneven sidewalks. If your balance is poor, consider using a cane or walker. Stay as active as you can. Balance, flexibility, strength, and endurance all come from exercise. They all play a role in preventing falls. Follow Up with your doctor or as advised by our staff. Get Prompt Medical Attention if any of the following occur: Repeated mechanical falls, or unexplained falls Dizziness, fainting or seizure Severe headache Chest pain or shortness of breath Palpitations (very rapid or very slow or irregular heartbeat) Blood in vomit, stools (black or red color) Weakness of an arm or leg or one side of the face Difficulty with speech or vision Anemia [Type Not Specified, Adult] Red blood cells carry oxygen to the tissues of the body. Anemia is a condition where the size or number of red blood cells in the body is reduced. Iron is needed to make red blood cells. The most common cause of anemia is iron deficiency. This may be due to: i) Blood loss (heavy menstrual periods or bleeding from the stomach or intestines); or, ii) Not eating enough iron-containing foods. Other causes of anemia include certain vitamin deficiencies, chronic kidney disease or certain other chronic illnesses. Anemia causes a feeling of being tired and run down. When anemia becomes severe, the skin becomes pale and there is shortness of breath with exertion. Headaches, dizziness, leg cramps with exertion, drowsiness and fatigue are other common symptoms. Home Care: If you are having symptoms of anemia listed above: -- Do not overexert yourself. -- Talk to your doctor before flying on an airplane or traveling to high altitudes. Follow Up with your doctor as advised by our staff. Additional blood testing may be required to determine the exact cause of your anemia. If testing was done on this visit, it may take several days to get all of the results. You may call this facility or follow up with your own doctor to get the results. Get Prompt Medical Attention if any of the following occur: -- Shortness of breath or chest pain -- Worsening of dizziness, fainting -- Vomiting blood or passing red or black-colored stool Peripheral Vascular Disease Peripheral vascular disease (PVD) is a condition where blood flow to the extremities is reduced or blocked. This is most often due to a buildup of fat (cholesterol and triglycerides) in the [place] of the arteries (arteriosclerosis). This most often affects one or both legs. When one or more arteries is narrowed or blocked, the muscles cannot get enough blood and oxygen.That is whysymptoms increase with muscular effort. About half of patients with PVD do not have symptoms. Those with symptoms usually complain of leg pain (one or both calves, thighs, hips) during exertion which gets better with rest. This is calledintermittent claudication. In more severe cases, the pain can occur even at rest (for example, at night when you are in bed). Other symptoms may include numbness, tingling or weakness in the legs, burning or aching in the feet or toes. Risk factors for developing PVD include: Age over 50 Diabetes Cigarette smoking Hypertension Obesity High lipids (fats) in the blood Inactive lifestyle People with PVD are at [id number] risk for a heart attack and stroke. Home Care: If you smoke, quit smoking. This will lessen your symptoms and lower your chance that the disease will get worse. Join a stop-smoking program or talk to your doctor for assistance. Unless your doctor tells you otherwise, engage in a physical activity (such as a brisk walk) for at least 30 minutes a day. Follow a low-fat diet and avoid foods high in cholesterol. If you are overweight, talk to your doctor about weight-loss strategies. Control high blood pressure. If you have diabetes, make every effort to control your blood sugar. Ask your doctor to monitor your HbA1C level, which is a measure of how well your blood sugar is controlled. It should be below 7.0. High blood sugar over a long period of time will damage the blood vessels in the eyes, heart, brain, kidneys, and legs. Trim your toenails regularly and watch for cuts, scrapes, or open sores on your feet. PVD increases risk of infection from these types of problems. Follow Up with your doctor or as advised by our staff. Get Prompt Medical Attention if any of the following occur: Pain in the chest, arm, upper back, neck, jaw, or shoulder Shortness of breath Dizziness or fainting Sudden severe headache (worst headache of your life) Difficulty with speech or vision, weakness of an arm or leg Confusion, difficulty walking, loss of balance Sudden severe pain in the leg or foot Sudden cold, pale or blue color to the leg or foot You have been given the following additional information: Pain, Uncertain Cause (Acute) Arthralgia Fall, Mechanical Anemia, Type Not Specified (Adult) Peripheral Vascular Disease (Electronically signed by Neel Calles DO 01/12/2017 16:25)
== END 2017-01-12 16:05 | disposition home or self-care (01) ==
LOC: ED SRH 11:03
DX: I70.293 Other atherosclerosis of native arteries of extremities, bilateral legs (principal); M25.552 Pain in left hip; M79.652 Pain in left thigh; Z91.81 History of falling; R26.2 Difficulty in walking, not elsewhere classified; D63.8 Anemia in other chronic diseases classified elsewhere; K21.9 Gastro-esophageal reflux disease without esophagitis